=== PATIENT | female | born 1990 | race Caucasian/White ===

== ENCOUNTER → 2019-06-30 08:42 | Outpatient (CLI) | payer OTHER, SELFPAY ==
--- NOTE | ~2019-06-30 | US_ITS ---
EXAMINATION: US OB transvaginal DATE: 06/30/2019 09:15 INDICATION: Uncertain dates. History of spontaneous . TECHNIQUE: Real-time transvaginal pelvic ultrasound was performed. COMPARISON: None. FINDINGS: The uterus measures 9.1 x 5.9 x 6.8 cm. There is an intrauterine gestational sac. A yolk sac is iden tified. The crown rump length measures 0.7 cm, which correlates with an estimated gestational age of 6 weeks and 4 day(s) (+/-) 4 day(s). heart motion is identified measuring 111 beats per minute (bpm) by M-mode Doppler. The right ovary measures 2.8 x 1.7 x 2.3 cm. The left ovary measures 3.8 x 2.4 x 2.5 cm. There is no free fluid in the pelvis. IMPRESSION: 1. Single living intrauterine gestation with estimated date of delivery of 02/19/2020. Reviewed, dictated and finalized at location A. CE MACHINE SERVICER IMPRESSION: 1. Single living intrauterine gestation with estimated date of delivery of 01/24.
== END ==
PROVIDERS: Visit Provider Obstetrics & Gynecology Gynecology
DX: O26.21 Pregnancy care for patient with recurrent pregnancy loss, first trimester (principal); Z3A.00 Weeks of gestation of pregnancy not specified
CPT/HCPCS: 76817

== ENCOUNTER → 2019-07-18 08:13 | Outpatient (CLI) | payer OTHER, SELFPAY ==
--- NOTE | ~2019-07-18 | US_ITS ---
EXAMINATION: US OB <= 14 weeks fetus DATE: 07/18/2019 08:31 INDICATION: First trimester dating TECHNIQUE: Real-time pelvic transabdominal and transvaginal ultrasound was performed. COMPARISON: 06/30/2019 FINDINGS: The uterus measures 9.4 x 6.7 x 8.2 cm. There is an intrauterine gestational sac. A yolk s ac is identified. heart motion is identified measuring 162 beats per minute (bpm) by M-mode Dop pler. The crown rump length measures 2.4 cm , which correlates with an estimated gestational ag e of 9 weeks and 1 day(s) (+/-) 6 day(s). The right ovary measures 2.4 x 1.4 x 2.5 cm. The left ovary measures 3.7 x 1.8 x 2.1 cm. There is no free fluid in the pelvis. IMPRESSION: 1. Live intrauterine with an estimated gestational age of 9 weeks and 1 day(s) (+/-) 6 day( s) and an estimated delivery date of 02/19/2020. Reviewed, dictated and finalized at location A. ER COMPOUNDER MIXER IMPRESSION: 1. Live intrauterine with an estimated gestational age of 9 weeks and 1 day(s) (+/-) 6 day(s) and an estimated delivery date of 02/19/2020.
== END ==
PROVIDERS: Visit Provider Obstetrics & Gynecology Gynecology
DX: O26.21 Pregnancy care for patient with recurrent pregnancy loss, first trimester (principal); Z3A.09 9 weeks gestation of pregnancy
CPT/HCPCS: 76801

== ENCOUNTER 2019-12-02 12:20 | Outpatient (CLI) | payer OTHER, SELFPAY ==
--- NOTE | 2019-12-02 | ECG_ITS ---
Measurements Intervals [place] Rate: 77 P: 21 NH: 138 QRS: 34 QRSD: 82 T: 20 QT: 344 QTc: 391 Interpretive Statements SINUS RHYTHM NORMAL ECG Electronically Signed On 12-02-2019 12:57:11 CDT by Shaw Fernandes D.O.
== END 2019-12-02 12:21 | disposition home or self-care (01) ==
LOC: ANHLAB 12:22 → ANHCARD 12:25
PROVIDERS: Visit Provider Obstetrics & Gynecology
DX: R00.0 Tachycardia, unspecified (principal)
CPT/HCPCS: 93005

== ENCOUNTER → 2019-12-20 10:03 | Outpatient (CLI) | payer OTHER, SELFPAY ==
--- NOTE | ~2019-12-20 | US_ITS ---
EXAMINATION: US OB BPP wo non-stress DATE: 12/20/2019 10:33 INDICATION: Decreased movement. Third trimester. TECHNIQUE: Real-time pelvic ultrasound was performed. COMPARISON: Ultrasound 07/18/2019 FINDINGS: There is a single living fetus in breech presentation. The placenta is anterior. heart rate is 143 beats per minute (bpm). Biophysical profile performed by the technologist: breathing (30 sec sustained breathing in 30 minutes): 2 out of 2 movement (3 gross body movements in 30 minutes): 2 out of 2 tone (one episode of cakwyww-fqywdiyqa-tvzipkb limb movement): 2 out of 2 Amniotic fluid pocket (2 cm): 2 out of 2 Total score: 8 out of 8 IMPRESSION: 1. Single living fetus in breech presentation. 2. Biophysical profile 8 out of 8. Reviewed, dictated and finalized at location A.
== END ==
PROVIDERS: Visit Provider Obstetrics & Gynecology Gynecology
DX: O36.8130 Decreased fetal movements, third trimester, not applicable or unspecified (principal)
CPT/HCPCS: 76819

== ENCOUNTER 2020-01-09 07:36 | Outpatient (RCR) | payer OTHER, SELFPAY ==
[2019-12-26 09:40] VITALS: BP 111/72; PULSE 104
[2020-01-02 08:09] VITALS: BP 118/67; PULSE 99
[2020-01-05 09:34] VITALS: BP 111/69; PULSE 118
--- NOTE | ~2020-01-09 | US_ITS ---
EXAMINATION: US OB BPP wo non-stress DATE: 12/26/2019 09:44 INDICATION: Decreased movement, third trimester TECHNIQUE: Real-time pelvic ultrasound was performed. The interpreting radiologist was not present fo r the study. COMPARISON: 12/20/2019 FINDINGS: There is a single living fetus in breech presentation. The placenta is anterior. heart rate is 142 beats per minute (bpm). Biophysical profile performed by the technologist: breathing (30 sec sustained breathing in 30 minutes): 2 out of 2 movement (3 gross body movements in 30 minutes): 2 out of 2 tone (one episode of tempago-bbbpwvrfz-kafnhxt limb movement): 2 out of 2 Amniotic fluid pocket (2 cm): 2 out of 2 Total score: 8 out of 8 IMPRESSION: 1. Single living fetus in breech presentation. 2. Biophysical profile 8 out of 8. Reviewed, dictated and finalized at location A.
--- NOTE | ~2020-01-09 | US_ITS ---
EXAMINATION: US OB BPP wo non-stress DATE: 01/05/2020 08:49 INDICATION: Nonreactive nonstress test. Third trimester. TECHNIQUE: Real-time pelvic ultrasound was performed. COMPARISON: Ultrasound 12/26/2019 FINDINGS: There is a single living fetus in breech presentation. The placenta is anterior. heart rate is 144 beats per minute (bpm). Biophysical profile performed by the technologist: breathing (30 sec sustained breathing in 30 minutes): 2 out of 2 movement (3 gross body movements in 30 minutes): 2 out of 2 tone (one episode of xwscqht-jjlqeidst-kekjbce limb movement): 2 out of 2 Amniotic fluid pocket (2 cm): 2 out of 2 Total score: 8 out of 8 IMPRESSION: 1. Single living fetus in breech presentation. 2. Biophysical profile 8 out of 8. Reviewed, dictated and finalized at location B.
[2020-01-09 11:08] VITALS: BP 101/67; PULSE 98
== END 2020-02-17 08:39 | disposition home or self-care (01) ==
LOC: ANHOBOP 07:36
PROVIDERS: Visit Provider Obstetrics & Gynecology Gynecology
DX: O36.8130 Decreased fetal movements, third trimester, not applicable or unspecified (principal); Z3A.32 32 weeks gestation of pregnancy; Z3A.33 33 weeks gestation of pregnancy; Z3A.34 34 weeks gestation of pregnancy
CPT/HCPCS: 59025; 76819

== ENCOUNTER 2020-01-28 07:31 | Outpatient (CLI) | payer OTHER, SELFPAY ==
[2020-01-28 07:47] VITALS: BP 103/66; PULSE 87
[2020-01-28 08:00] VITALS: BP 103/71; PULSE 98
[2020-01-28 08:15] VITALS: BP 100/73; PULSE 112
--- NOTE | 2020-01-28 08:17 | PM.PROC ---
Procedure Note - Detailed Date of procedure: 01/28/20 Pre-op diagnosis: External Version Post-op diagnosis: same Procedure performed: external version-failed Description of procedure: under u/s guidance several attempts to turn were performed fetus tolerated well Anesthesia: none Surgeon: Alanna Canela MD Drains: No Packing: No Pathology: none sent Complications: No immediate complications Condition: stable Disposition: floor
[2020-01-28 08:30] VITALS: BP 107/73; PULSE 111
[2020-01-28] MEDS: TERBUTALINE SULFATE 1 MG/ML VIAL 0.25 MG SUB-Q (08:37)
[2020-01-28 08:46] VITALS: BP 104/69; PULSE 116
== END 2020-01-28 09:12 | disposition home or self-care (01) ==
LOC: ANHOBOP 07:36 → ANHOBPP 07:43
PROVIDERS: PCP Family Medicine Adolescent Medicine; Visit Provider Obstetrics & Gynecology Gynecology
DX: O32.1XX0 Maternal care for breech presentation, not applicable or unspecified (principal)
CPT/HCPCS: 59412; 99199; J3105

== ENCOUNTER 2020-02-16 05:32 | Inpatient (IN) | payer OTHER, SELFPAY ==
[2020-02-16] VITALS (73 sets, daily range): BP systolic 87–122; BP diastolic 51–80; PULSE 63–159; RESP 12–17; TEMP 36.7–37.2; O2SAT 85–100; BMI 34.1
[2020-02-16 06:10] LABS: Basophils Percent Auto 0.2 % (0.2-1.2); Eosinophils Absolute Auto 0.1 K/mm3 (0-0.3); Eosinophils Percent Auto 1.1 % (0-4.4); Hematocrit 37.8 % (37.0-47.0); Immature Granulocyte Absolute 0.04 K/mm3 (0.00-0.031); Immature Granulocyte Percent A 0.4 % (0-0.5); Lymphocytes Absolute Auto 1.75 K/mm3 (0.9-3.2); Lymphocytes Percent Auto 18.1 % (18.3-44.2); Mean Corpuscular HGB Conc 34.4 g/dl (32-36); Mean Corpuscular Hemoglobin 32.1 pg (26-34); Mean Corpuscular Volume 93.3 fl (80-100); Mean Platelet Volume 10.9 fl (7.4-10.4); Monocytes Absolute Auto 0.7 K/mm3 (0.1-0.6); Monocytes Percent Auto 7.1 % (2.6-8.5); Neutrophils Absolute Auto 7.1 K/mm3 (1.3-6.7); Neutrophils Percent Auto 73.1 % (45.5-73.1); Platelet Count Result 223 k/mm3 (150-375); Red Blood Count 4.05 M/mm3 (4.2-5.4); Red Cell Distribution Width 13.6 % (11.5-14.5); White Blood Count 9.7 K/mm3 (4.5-10.0)
[2020-02-16] MEDS: LACTATED RINGERS 1,000 ML 125 ML IV CONT ×2 (06:27→07:10)
--- NOTE | 2020-02-16 06:40 | WPDANESEPPF ---
Anes - Initial Pre Proc Eval Procedure: Operation Date: 02/16/20 07:30 Proposed Procedures p Primary Section - Mitul Krishnan MD Date/Time: 02/16/20 06:40 Surgeon: Alanna Canela MD Pre Op Diagnosis: Patient Data Age: 29 Gender: F Height: 5 ft 1 in Weight: 82 kg Last Vital Signs Pulse 99 02/16/20 06:30 BP 107/80 02/16/20 06:30 Allergies Allergy/AdvReac Type Severity Reaction Status Date / Time No Known Allergies Allergy Verified 01/05/20 07:36 Home Medications Medication Instructions Recorded Confirmed Type PNV cmb#95-ferrous fumarate-FA 1 tablet PO DAILY 01/05/20 02/16/20 History [] aspirin [Aspirin Low Dose] 81 mg PO DAILY 01/05/20 02/16/20 History docusate sodium [Colace] 100 mg PO DAILY 01/05/20 02/16/20 History ergocalciferol (vitamin D2) 1,250 mcg PO WEEKLY 01/05/20 02/16/20 History [Vitamin D2] levothyroxine [Synthroid] 50 mcg PO DAILY 01/05/20 02/16/20 History Laboratory Tests 02/16/20 02/16/20 05:59 05:59 WBC 9.7 K/mm3 K/mm3 (4.5-10.0) RBC 4.05 M/mm3 L M/mm3 (4.2-5.4) Hgb 13.0 g/dL g/dL (12.0-15.0) Hct 37.8 % % (37.0-47.0) MCV 93.3 fl fl (80-100) MCH 32.1 pg pg (26-34) MCHC 34.4 g/dl g/dl (32-36) RDW 13.6 % % (11.5-14.5) Plt Count 223 k/mm3 k/mm3 (150-375) MPV 10.9 fl H fl (7.4-10.4) Immature Gran % (Auto) 0.4 % % (0-0.5) Neut % (Auto) 73.1 % % (45.5-73.1) Lymph % (Auto) 18.1 % L % (18.3-44.2) [place] % (Auto) 7.1 % % (2.6-8.5) Eos % (Auto) 1.1 % % (0-4.4) Baso % (Auto) 0.2 % % (0.2-1.2) Lymph # (Auto) 1.75 K/mm3 K/mm3 (0.9-3.2) [place] # (Auto) 0.7 K/mm3 H K/mm3 (0.1-0.6) Eos # (Auto) 0.1 K/mm3 K/mm3 (0-0.3) Baso # (Auto) 0.0 K/mm3 K/mm3 (0.0-0.1) Abs Immat Gran (auto) 0.04 K/mm3 H K/mm3 (0.00-0.031) Absolute Neuts (auto) 7.1 K/mm3 H K/mm3 (1.3-6.7) Absolute Nucleated RBC 0.0 K/mm3 K/mm3 (0.0-0.012) Nucleated RBC % 0.0 % % (0.0-0.2) RPR Pending Patient hx anesthesia problems: none Family hx anesthesia problems: none [facility] Past Medical History Medical History Hypothyroid Family History Family History Other No pertinent family history Social History Social History Substance use: never Gender identity (if verbalized by the patient): Female Spiritual care concerns: No Anes - Eval Final PreProcedure Day of Procedure 02/16/20 06:40 Patient weight: obese Heart: regular rate and rhythm Lungs: clear to auscultation Airway: Mallampati scale class II Neurological: alert and oriented Last oral intake: >/= 8 hours ASA classification: II Emergent: no Anesthetic plan: proceed Anesthesia type and monitoring: regional spinal and standard monitoring Informed Consent: The patient's anesthetic plan and its attendant risks and benefits were discussed with the patient/family/POA. Questions were solicited and answers provided to the satisfaction of the patient/family/POA.
--- NOTE | 2020-02-16 06:44 | LDADM ---
This patient, Patt May, was admitted to Labor/Delivery/Recovery 120 on 02/16/20 at 05:32. Plans for labor, pain management and were discussed with patient. Patient/family oriented to hospital policies and general routines including ID bracelet, bed and alarms, visiting hours, pain management, procedures, bathroom and other care routines, personal items, smoking policy, room service/diet and guest tray routines, security routines, and visiting hours. Patient/Family are encouraged to report perceived risks to care and to ask questions if they do not understand what they are told or what they should do. See OBIX for further documentation.
--- NOTE | 2020-02-16 07:26 | PM.IMHP ---
H&P: HPI History of Present Illness Date/Time: 02/16/20 07:26 Chief complaint: Narrative: Patt May is a 29 year old female primip at 39 weeks by lmp c/w ultrasound EDC 02/19/20. Patienent is scheduled for a primary csection for breech. complicated by hypothyroid, MTHFR homozygous. Patient reports movement and denies leakage of fluid. PMFSH Past Medical History Medical History Hypothyroid Family History Family History Other No pertinent family history Social History Social History Smoking status: Never smoker Second hand tobacco smoke exposure: No Substance use: never Gender identity (if verbalized by the patient): Female Spiritual care concerns: No Meds Home Medications and Allergies Home Medications Medication Instructions Recorded Confirmed Type PNV cmb#95-ferrous fumarate-FA 1 tablet PO DAILY 01/05/20 02/16/20 History [] aspirin [Aspirin Low Dose] 81 mg PO DAILY 01/05/20 02/16/20 History docusate sodium [Colace] 100 mg PO DAILY 01/05/20 02/16/20 History ergocalciferol (vitamin D2) 1,250 mcg PO WEEKLY 01/05/20 02/16/20 History [Vitamin D2] levothyroxine [Synthroid] 50 mcg PO DAILY 01/05/20 02/16/20 History Allergies Allergy/AdvReac Type Severity Reaction Status Date / Time No Known Allergies Allergy Verified 01/05/20 07:36 Vital Signs Vital Signs - 24 hr 02/16/20 06:03 02/16/20 06:15 02/16/20 06:30 Pulse Rate 107 H 119 H 99 Blood Pressure 94/65 L 106/77 107/80 02/16/20 06:45 02/16/20 07:00 Pulse Rate 92 79 Blood Pressure 109/74 110/60 Exam Const: General: no acute distress Resp: Auscultation: clear to auscultation bilaterally Cardio: Rate: regular rate GI: GI Palp: Yes Soft to palpation Other: Gravid 41 cm : External Female Exam: normal external appearance H&P: Results Labs Labs: Short CBC 02/16/20 Range/Units 05:59 WBC 9.7 (4.5-10.0) K/mm3 Hgb 13.0 (12.0-15.0) g/dL Hct 37.8 (37.0-47.0) % Plt Count 223 (150-375) k/mm3 Assessment and Plan Assessment and plan (1) Breech presentation: Code(s): O32.1XX0 - Maternal care for breech presentation, not applicable or unspecified Status: Acute Assessment and Plan: Scheduled for a primary csection. risk and benefits reviewed with patient in detail.
[2020-02-16] MEDS: ceFAZolin 2 GM/D5W 50 ML 2 GM/50 ML BAG IVPB (07:34)
[2020-02-16] MEDS: OXYTOCIN 30 UNITS/NS 500 ML 30 UNITS/500 ML BAG 125 UNITS IV CONT (09:06)
[2020-02-16 09:37] LABS: Rapid Plasma Reagin Non-Reactive (NonReactive)
[2020-02-16] MEDS: DEXTROSE 5%/0.45% SOD CHL 1,000 ML 125 ML IV CONT (13:18)
[2020-02-16] MEDS: LANOLIN (LANSINOH) 7.5 GM CREAM 1 APPLIC TOPICAL (13:18)
--- NOTE | 2020-02-16 18:59 | PC.NURSE ---
1205 Pt admitted to room 289 per stretcher from labor and delivery after primary delivery, for zahida breech positioning, of viable male at [address] Krishnan Mother is a and is choosing to breast feed . FOB present; couple oriented to room, staffing and procedures; admission folder reviewed with them, including mother-baby guide. Pt's VSS and assessment WNL.
[2020-02-16] MEDS: KETOROLAC 30 MG/ML VIAL (*BKC) IV PUSH (20:54)
[2020-02-16] MEDS: DOCUSATE SODIUM 100 MG CAPSULE PO (20:55)
[2020-02-17] MEDS: LORATADINE 10 MG TABLET PO (00:01)
[2020-02-17 04:55] VITALS: BP 99/65; PULSE 74; RESP 13; TEMP 36.8; O2SAT 98
--- NOTE | 2020-02-17 05:14 | PM.PROC ---
Procedure Note - Detailed Date of procedure: 02/17/20 Pre-op diagnosis: breech Post-op diagnosis: same Procedure performed: [facility] Description of procedure: The patient was taken to the operating room with IV running. She was prepared and draped in a normal sterile fashion after a spinal anesthesia was performed. The patient was taped placed in the leftward tilt. A Pfannenstiel skin incision was made with scalpel carried down to the underlying layer of fascia. This fascial incision was excised in the midline and extended bilaterally with Jimenez scissors. The anterior portion of the fascia was grasped with Mary clamps elevated and dissected off the rectus muscles. The inferior aspect of the incision was grasped with clamps elevated dissected off the rectus muscles. The rectus muscles were in the midline peritoneum was entered bluntly. And the lower uterine segment was noted a bladder blade was inserted sickle uterine peritoneum was grasped with peons and sharply Metzenbaum scissors bladder blade was created. A transverse incision was made with the scalpel this incision was then extended bluntly. The fetus was delivered in breech presentation. The cord was clamped and cut and the fetus was handed off to the waiting nurse. Cord blood was obtained for gasses were obtained. The placenta was delivered spontaneously. The uterus is exteriorized and cleared of all clots and debris. The uterine incision was then closed with 0 Monocryl in a running locked fashion. Second layer the same suture was used to imbricate this incision. Uterus was returned to the abdomen the gutters were irrigated and cleared of all clot and debris uterine incision was hemostatic. The muscles were examined hemostasis noted the fascia was closed with O Vicryl in a running fashion. The skin was closed with 0 Vicryl on a Abdi needle sponge lap and needle counts were correct x2 patient tolerated procedure well patient received 2 g Ancef prior to skin incision. Anesthesia: spinal Surgeon: Mitul Krishnan MD Estimated blood loss (mL): 490 Urine output (mL): 200 Drains: Yes Packing: No Pathology: yes Complications: None Condition: stable Disposition: PACU Findings: zahida breech fetus short umbilical cord.
--- NOTE | 2020-02-17 05:17 | PM.OBPRVD ---
OB - Delivery Note Procedure Delivery date: 02/16/20 Procedure: Procedures Operation Date: 02/16/20 07:30 Actual Procedures Side Surgeon p Section Mitul Krishnan MD Intrapartal events: None Specimen: Yes Anesthesia type: Spinal Disposition: PACU [place] Baby Date of : 02/16/20 Time of : 07:56 Weeks of gestation at delivery: 39 Infant gender: Male Weight (pounds): 7 Weight (ounces): 5 presentation: vertex position: Left Occiput Anterior Placenta delivery description: Spontaneous cord vessel description: 3 Vessels score one minute: 8 score five minutes: 9
[2020-02-17] MEDS: IBUPROFEN 600 MG TABLET PO ×4 (05:23→23:24)
[2020-02-17] MEDS: HYDROcodone/acetaminophen (*CRX) 5-325 MG TABLET 1 TAB PO (05:24)
[2020-02-17 05:25] LABS: Basophils Percent Auto 0.2 % (0.2-1.2); Eosinophils Absolute Auto 0.1 K/mm3 (0-0.3); Eosinophils Percent Auto 0.5 % (0-4.4); Hematocrit 30.8 % (37.0-47.0); Hemoglobin 10.2 g/dL (12.0-15.0); Immature Granulocyte Absolute 0.06 K/mm3 (0.00-0.031); Immature Granulocyte Percent A 0.6 % (0-0.5); Lymphocytes Absolute Auto 1.68 K/mm3 (0.9-3.2); Lymphocytes Percent Auto 16.4 % (18.3-44.2); Mean Corpuscular HGB Conc 33.1 g/dl (32-36); Mean Corpuscular Hemoglobin 31.9 pg (26-34); Mean Corpuscular Volume 96.3 fl (80-100); Mean Platelet Volume 10.6 fl (7.4-10.4); Monocytes Absolute Auto 0.9 K/mm3 (0.1-0.6); Monocytes Percent Auto 8.3 % (2.6-8.5); Neutrophils Absolute Auto 7.6 K/mm3 (1.3-6.7); Platelet Count Result 181 k/mm3 (150-375); Red Cell Distribution Width 13.7 % (11.5-14.5); White Blood Count 10.2 K/mm3 (4.5-10.0)
--- NOTE | 2020-02-17 05:54 | PM.OBPNVD ---
OB - PN: Subj Subjective Date/time seen: 02/17/20 05:54 S: doing well no complaints pain controlled OB - PN: Obj Data Labs CBC & Chem 7: 02/17/20 05:05 Labs: Laboratory Results - last 24 hr 02/16/20 02/16/20 02/16/20 05:59 05:59 05:59 WBC 9.7 RBC 4.05 L Hgb 13.0 Hct 37.8 MCV 93.3 MCH 32.1 MCHC 34.4 RDW 13.6 Plt Count 223 MPV 10.9 H Immature Gran % (Auto) 0.4 Neut % (Auto) 73.1 Lymph % (Auto) 18.1 L [place] % (Auto) 7.1 Eos % (Auto) 1.1 Baso % (Auto) 0.2 Lymph # (Auto) 1.75 [place] # (Auto) 0.7 H Eos # (Auto) 0.1 Baso # (Auto) 0.0 Abs Immat Gran (auto) 0.04 H Absolute Neuts (auto) 7.1 H Absolute Nucleated RBC 0.0 Nucleated RBC % 0.0 RPR Non-reactive Blood Type O Positive Antibody Screen Negative 02/17/20 05:05 WBC 10.2 H RBC 3.20 L Hgb 10.2 L Hct 30.8 L MCV 96.3 MCH 31.9 MCHC 33.1 RDW 13.7 Plt Count 181 MPV 10.6 H Immature Gran % (Auto) 0.6 H Neut % (Auto) 74.0 H Lymph % (Auto) 16.4 L [place] % (Auto) 8.3 Eos % (Auto) 0.5 Baso % (Auto) 0.2 Lymph # (Auto) 1.68 [place] # (Auto) 0.9 H Eos # (Auto) 0.1 Baso # (Auto) 0.0 Abs Immat Gran (auto) 0.06 H Absolute Neuts (auto) 7.6 H Absolute Nucleated RBC 0.0 Nucleated RBC % 0.0 RPR Blood Type Antibody Screen OB - PN A/P Assessment and Plan (1) Breech presentation: Code(s): O32.1XX0 - Maternal care for breech presentation, not applicable or unspecified Status: Acute Assessment and Plan: s/p ltcs POD 1 continue with pp care. Time Spent With Patient Time: Total time spent is greater than 50% in coordination of care (as documented) at patient's floor/unit and/or counseling patient: Exam GI: Other: abdomen soft incisio c/d/i ff below umbilicus
[2020-02-17 08:45] VITALS: BP 95/60; PULSE 77; RESP 18; TEMP 36.8; O2SAT 98
--- NOTE | 2020-02-17 08:45 | PC.NURSE ---
Consulted with patient, mother reports infant eagerly feeing using the nipple shield. had a frenulectomy right after delivery. Suggested to attempt first without shield Discussed nipple shield precautions and possible complications. Instructions given on application and cleaning of shield. Patient able to return demonstration on proper application of shield. Discussed the need to initiate pumping if infant continues to nurse with the shield. Patient verbalizes understanding. Discussed weaning techniques for shield. Reviewed infant feeding cues, frequencies, duration of feedings, feeding elimination flow sheet, and signs of adequate intake. Demonstrated stimulation techniques to wake for feeding. Assisted with to breast. Reviewed positioning/alignment in cross cradle , holding breast in U hold and guided asymmetrical latch on. Infant was able to latch correctly. Infant nursed eagerly with steady draws and occasional swallowing noted. Reviewed signs of a correct latch, effective nursing and suck swallow ratio. was able to maintain latch without discomfort to mother. Nipple care reviewed. Suggested mother stimulate while feeding to keep awake and nursing effectively for increased intake and to assist with maintaining deep latch. Demonstrated how to adjust latch more deeply while feeding. Instructed mother to call out for RN assistance if she is unable to latch infant for feeding or she has discomfort with nursing. Instructed feeding should be initiated three hours from start of last feeding or if feeding cues are noted before. Mother voiced understanding of information shared.
--- NOTE | 2020-02-17 09:24 | WPDANLDPN2 ---
Anes-Prog Note L&D Date/Time: 02/17/20 09:24 Comfortable throughout: section Neuraxial method: spinal Epidural/Spinal procedure site: clean & non-tender Neuro status: Neuro function grossly intact. Cardiovascular status: normal Respiratory status: normal Airway patency: baseline Mental status: baseline Post-Op hydration status: normal Vital Signs: Last Vital Signs Temp 36.8 C 02/17/20 04:55 Pulse 74 02/17/20 04:55 Resp 13 02/17/20 04:55 BP 99/65 L 02/17/20 04:55 Pulse Ox 98 02/17/20 04:55 Pain score (VAS): 1 I/O: Intake & Output 02/16/20 02/17/20 02/17/20 23:59 07:59 15:59 Intake Total 1893 500 Output Total 2450 200 Balance -557 300 Post-procedural complaints: pruritis moderate, treatment effective Patient feedback: Patient satisfied with anesthetic care.
--- NOTE | 2020-02-17 09:24 | WPDANLDNPN2 ---
Anes-Prog Note L&D-Neuraxial Date/Time: 02/17/20 09:24 Neuraxial medications: intrathecal PF morphine Opiod-related complaints: pruritis moderate, treatment effective Patient feedback: Patient satisfied with post-operative pain management.
[2020-02-17] MEDS: LEVOTHYROXINE SODIUM 50 MCG TABLET PO (10:52)
[2020-02-17] MEDS: SIMETHICONE 80 MG TAB.CHEW PO ×2 (10:53→16:40)
[2020-02-17] MEDS: HYDROcodone/acetaminophen (*CRX) 10-325 MG TABLET 1 TAB PO ×3 (10:53→23:24)
[2020-02-17] MEDS: DOCUSATE SODIUM 100 MG CAPSULE PO (16:41)
--- NOTE | 2020-02-17 18:00 | PC.NURSE ---
Assisted mother with her Spectra breastpump. Instructions given on breast pump care and usage, pumping schedule, nipple care, and collection and storage of breast milk. Encouraged [id number], breast massage and manual expression to stimulate supply. Assessed patient for correct flange size, placement and draw. Patient verbalizes and demonstrates understanding of instructions. Advised to pump after each feeding using the nipple shield.
[2020-02-17 21:25] VITALS: BP 104/61; PULSE 88; RESP 14; TEMP 36.5; O2SAT 96
[2020-02-18] MEDS: LEVOTHYROXINE SODIUM 50 MCG TABLET PO (07:21)
[2020-02-18] MEDS: SIMETHICONE 80 MG TAB.CHEW PO (07:21)
[2020-02-18] MEDS: IBUPROFEN 600 MG TABLET PO ×3 (07:21→23:18)
[2020-02-18] MEDS: HYDROcodone/acetaminophen (*CRX) 10-325 MG TABLET 1 TAB PO ×2 (07:22→17:40)
[2020-02-18] MEDS: DOCUSATE SODIUM 100 MG CAPSULE PO ×2 (07:25→16:22)
[2020-02-18 08:00] VITALS: BP 120/73; PULSE 78; RESP 16; TEMP 36.9
--- NOTE | 2020-02-18 09:33 | PM.OBPNVD ---
OB - PN: Subj Subjective Date/time seen: 02/18/20 09:33 doing okay having some trouble with breast feeding OB - PN: Obj Data Labs CBC & Chem 7: 02/17/20 05:05 OB - PN A/P Assessment and Plan (1) Breech presentation: Code(s): O32.1XX0 - Maternal care for breech presentation, not applicable or unspecified Status: Acute Assessment and Plan: s/p ltcs continue with pp care. Time Spent With Patient Time: Total time spent is greater than 50% in coordination of care (as documented) at patient's floor/unit and/or counseling patient: Exam : Other: ff below umbilicus
[2020-02-18 18:20] VITALS: BP 104/65; PULSE 83; RESP 16; TEMP 37; O2SAT 98
--- NOTE | 2020-02-18 20:22 | PC.NURSE ---
02/18/2020 at 2000 Patient viewed the discharge video Mother & Baby Care, The First Two Weeks . Patient was given the opportunity and encouraged to ask questions. Patient verbalized understanding of information shared and has been given the mother/baby guide for home reference.
[2020-02-18] MEDS: HYDROcodone/acetaminophen (*CRX) 5-325 MG TABLET 1 TAB PO (23:17)
[2020-02-19] MEDS: HYDROcodone/acetaminophen (*CRX) 5-325 MG TABLET 1 TAB PO ×2 (05:16→09:50)
[2020-02-19] MEDS: IBUPROFEN 600 MG TABLET PO ×2 (05:16→11:40)
--- NOTE | 2020-02-19 05:36 | PC.NURSE ---
02/19/2020 I discussed with mother using the nippleshield and stressed the importance of pumping after EVERY use of the nippleshield to avoid an abscess in her breast. I continued with the nippleshield baby does not empty the sinuses of the breast as much leaving the opportunity for the abscess. Mother states understanding.
[2020-02-19] MEDS: LEVOTHYROXINE SODIUM 50 MCG TABLET PO (07:16)
[2020-02-19 07:30] VITALS: BP 112/73; PULSE 82; RESP 16; TEMP 37.3; O2SAT 100
--- NOTE | 2020-02-19 09:48 | PM.OBPNVD ---
OB - PN: Subj Subjective Date/time seen: 02/19/20 09:48 doing well pain controlled. OB - PN: Obj Data Labs CBC & Chem 7: 02/17/20 05:05 OB - PN A/P Assessment and Plan (1) Breech presentation: Code(s): O32.1XX0 - Maternal care for breech presentation, not applicable or unspecified Status: Acute (2) S/P : Code(s): Z98.891 - History of uterine scar from previous surgery Status: Acute Assessment and Plan: d/c home continue with prn pain meds. f/u in l week for bp check. Time Spent With Patient Time: Total time spent is greater than 50% in coordination of care (as documented) at patient's floor/unit and/or counseling patient: Exam GI: Other: inc; C/D/I ff fundus
[2020-02-19] MEDS: DOCUSATE SODIUM 100 MG CAPSULE PO (09:50)
--- NOTE | 2020-02-19 14:31 | PC.NURSE ---
1255 Pt and her state they reviewed the discharge papers, and mother has signed them in understanding. Discharged home with baby at this time in apparent stable condition
[2020-02-21 07:51] VITALS: BP 117/71; PULSE 85; RESP 20; TEMP 36.6; O2SAT 100
--- NOTE | 2020-02-25 11:24 | PM.OBDSVD ---
DS: Admitting Diagnosis Admitting Diagnosis Admitting Diagnosis: DS: Discharge Diagnosis Discharge Diagnosis (1) Breech presentation: Code(s): O32.1XX0 - Maternal care for breech presentation, not applicable or unspecified Status: Acute (2) S/P : Code(s): Z98.891 - History of uterine scar from previous surgery Status: Acute OB - DS: Summary OB Procedures : Ultrasound OB Procedures Intrapartum: Breech extraction and OB Procedures: : None Peripartum Data Procedures: Procedures Operation Date: 02/16/20 07:30 Actual Procedures Side Surgeon p Section Mitul Krishnan MD Time Spent with Patient Time attestation: Total time spent providing and/or coordinating discharge services: DS: Data Data Completed and Pending Completed studies during hospitalization: Pending at discharge 02/16/20 07:59 Surgical [PTH] Routine Discharge Plan Discharge Attending physician on discharge: Mitul Krishnan Consulting providers: Rogelio Arvizu Discharging Clinician: Mitul Krishnan Patient Disposition: Home, Self-Care Activity: may drive after 2 weeks and pelvic rest Diet: regular Discharge Instructions: Education: Mom and Baby Guide Given to: Mother Follow-Up: Call your delivering provider's office for an appointment to be seen in: as directed by physician; call for appointment Mom and baby should come to the [facility] for the follow-up appointment. Appointment Date/Time: February 21, 2020 at 8:00 am What to expect at your follow-up visit: Blood Pressure Check Physical Assessment Call [phone] if you are unable to keep your appointment time. BREAST CARE: * Wear a snug supportive bra. * For engorgement discomfort: Breast Feeding: * Apply warm moist washcloths * Express milk as needed to relieve engorgement * Wear loose clothing Bottle Feeding: * May apply ice packs * For sore nipples: * Identify correct latch-on * Apply warm moist washcloths before and after nursing * Air dry nipples after nursing * May apply Lansinoh cream to nipples ABDOMINAL INCISION: (if applicable) * Allow incision to air dry * Do NOT use lotions for powders on your incision * When showering, allow soap and water to run over the incision, but do not wash incision EPISIOTOMY/PERINEAL CARE: * Until bleeding stops, use your kristin bottle after urinating * Change your pad frequently throughout the day * No tub baths until seen by your physician - You may shower ACTIVITY: * Rest as much as possible. * Do not exercise or lift anything heavier than your baby (such as laundry or other children.) * Avoid stairs or driving as much as possible. * Do not put anything into the vagina. No douching, tampons, or sexual activity until seen by physician. NOTIFY PHYSICIAN IF YOU HAVE ANY QUESTIONS OR IF ANY OF THE FOLLOWING SYMPTOMS OCCUR: * If your incision becomes red, swollen, or more painful than what you have experienced in the hospital. * If your vaginal bleeding becomes foul smelling. * If your vaginal bleeding becomes more heavy than a period or if your bleeding changes from pink to bright red. However, you may pass an occasional walnut-sized clot once or twice for the first week . * If you experience a sharp, shooting pain in you calves. * If you discover a hard, reddened area on your breast or if you experience flu-like symptoms. *Temperature of 100.4 or higher DIET: * Eat regular, well-balanced meals. * Drink plenty of fluids daily. If , drink to thirst. Stand Alone Forms: General Discharge Information Follow-up/Referrals: Alanna Canela MD [Physician] - Discharge Medications: New hydrocodone-acetaminophen 5-325 mg Tablet 1 tab PO Q3H PRN (Reason: Moderate Pain (4-
== END 2020-02-19 12:55 | disposition home or self-care (01) | DRG 787 ==
LOC: ANHLDR 05:45 → ANHOB2 02-17 05:10 → ANHLDR 02-20 19:29 → ANHOB2 02-20 19:29
PROVIDERS: Admitting Provider Obstetrics & Gynecology Gynecology; PCP Family Medicine Adolescent Medicine; Visit Provider Obstetrics & Gynecology
PROC: (CPT 59514; principal; 2020-02-16 07:30)
DX: O32.1XX0 Maternal care for breech presentation, not applicable or unspecified (principal); E72.12 Methylenetetrahydrofolate reductase deficiency; Z37.0 Single live birth; Z3A.39 39 weeks gestation of pregnancy; O99.284 Endocrine, nutritional and metabolic diseases complicating childbirth; E03.9 Hypothyroidism, unspecified; O99.214 Obesity complicating childbirth; E66.9 Obesity, unspecified; O69.3XX0 Labor and delivery complicated by short cord, not applicable or unspecified; O99.73 Diseases of the skin and subcutaneous tissue complicating the puerperium; L29.9 Pruritus, unspecified
CPT/HCPCS: 36415; 85025; 86592; 86850; 86900; 86901; 88307; A9270; J0131; J0690; J1100; J1885; J2274; J2590; J7120

== ENCOUNTER → 2024-03-08 13:48 | Outpatient (REF) | payer BC, SELFPAY | LOC: ANHLAB 13:48 | PROVIDERS: PCP Family Medicine Adolescent Medicine; Visit Provider Physician Assistant Surgical | DX: C44.91 Basal cell carcinoma of skin, unspecified (principal) | CPT/HCPCS: 88305 ==